=== PATIENT | female | born 1990 | race Caucasian/White ===

== ENCOUNTER 2020-06-25 06:00 | Inpatient (IN) ==
[2020-06-25] MEDS ORDERED: Famotidine 20 MG/2 ML VIAL IVP PRN (06:19)
[2020-06-25] MEDS ORDERED: Ondansetron 4 MG/2 ML VIAL IVP PRN (06:19)
[2020-06-25] MEDS ORDERED: *HR* Nalbuphine 10 MG/ML AMPUL IV PRN (06:19)
[2020-06-25] MEDS ORDERED: Lidocaine 1% 20 ML MDV ID PRN (06:19)
[2020-06-25] MEDS ORDERED: Naloxone 0.4 MG/ML INJ IVP PRN (06:19)
[2020-06-25] MEDS ORDERED: Metoclopramide 10 MG/2 ML VIAL IVP PRN (06:19)
[2020-06-25] MEDS ORDERED: Azithromycin 500 MG in 0.9 % Sodium Chloride 250 ML IVPB ONE (06:19)
[2020-06-25] MEDS ORDERED: D5% in 0.45% NACL 1,000 ML IVC SCH (06:30)
[2020-06-25 07:16] LABS: Basophils # 0.1 K/mcL (0.0-0.2); Basophils % 0.3 %; Eosinophils # 0.2 K/mcL (0.0-0.6); Eosinophils % 1.3 %; Hematocrit 37.8 % (35.3-44.9); Hemoglobin 12.7 g/dL (11.5-15.4); Immature Granulocytes % 0.7 % (0-4); Lymphocytes # 2.5 K/mcL (0.6-4.6); Lymphocytes % 17.1 %; Mean Corpuscular HGB Conc 33.6 g/dL (31.6-35.5); Mean Corpuscular Hemoglobin 31.2 pg (28.0-33.3); Mean Corpuscular Volume 92.9 fL (83.0-100.0); Mean Platelet Volume 10.7 fL (9.4-12.4); Monocytes # 0.9 K/mcL (0.0-1.3); Monocytes % 5.8 %; Platelet Count 180 K/mcL (140-400); Red Blood Count 4.07 M/mcL (3.82-4.97); Red Cell Distribution Width 12.7 % (11.5-14.5); Segmented Neutrophils % 74.8 %; White Blood Count 14.7 K/mcL (4.3-11.1)
[2020-06-25] MEDS ORDERED: EPHEDrine 50 MG/ML VIAL IVP PRN (08:12)
[2020-06-25] MEDS ORDERED: Epidural Premix (fent/bupiv) 110 ML EP SCH (08:15)
[2020-06-25 08:28] LABS: Amphetamine Screen,Urine Negative ng/mL (Cutoff=1000); Barbiturate Screen,Urine Negative ng/mL (Cutoff=200); Benzodiazepines Screen,Urine Negative ng/mL (Cutoff=200); Cannabinoid Screen,Urine Negative ng/mL (Cutoff = 50); Cocaine Screen,Urine Negative ng/mL (Cutoff= 300); Opiate Screen,Urine Negative ng/mL (Cutoff=300); Phencyclidine Screen,Urine Negative ng/mL (Cutoff=25)
[2020-06-25 08:32] LABS: Adenovirus Not Detected (Not Detect); Bordetella Pertussis Not Detected (Not Detect); Chlamydophila pneumoniae Not Detected (Not Detect); Coronavirus 229E Not Detected (Not Detect); Coronavirus HKU1 Not Detected (Not Detect); Coronavirus NL63 Not Detected (Not Detect); Coronavirus OC43 Not Detected (Not Detect); Human Metapneumovirus Not Detected (Not Detect); Human Rhinovirus/Enterovirus Not Detected (Not Detect); Influenza A Subtype 2009 H1 Not Detected (Not Detect); Influenza B Not Detected (Not Detect); Mycoplasma pneumoniae Not Detected (Not Detect); Parainfluenza Virus 1 Not Detected (Not Detect); Parainfluenza Virus 2 Not Detected (Not Detect); Parainfluenza Virus 3 Not Detected (Not Detect); Parainfluenza Virus 4 Not Detected (Not Detect); Respiratory Syncytial Virus Not Detected (Not Detect); SARS-CoV-2 Not Detected (Not Detect)
[2020-06-25] MEDS ORDERED: Oxytocin 20 units/ LR 1000 mL 20 UNIT/1,000 ML BAG IVC SCH (20:15)
[2020-06-25] MEDS ORDERED: Ringers Solution, Lactated 1,000 ML ONE (20:22)
[2020-06-25] MEDS ORDERED: *HR* FentaNYL (PF) 100 MCG/2 ML VIAL ONE (20:39)
[2020-06-25] MEDS ORDERED: Ropivacaine/PF 0.2% 20 ML VIAL ONE (20:39)
[2020-06-25] MEDS ORDERED: Ringers Solution, Lactated 1,000 ML IVC SCH (20:45)
[2020-06-26] MEDS ORDERED: Acetaminophen 325 MG TABLET PO ONE (05:33)
[2020-06-26] MEDS ORDERED: CeFAZolin 2,000 MG/50 ML BAG IVPB ONE (06:31)
[2020-06-26] MEDS ORDERED: Lidocaine/EPI 1:200k 2% PF 20 ML VIAL ONE (06:40)
[2020-06-26] MEDS ORDERED: *HR* Phenylephrine 10 MG/ML VIAL ONE (06:40)
[2020-06-26] MEDS ORDERED: *HR* Oxytocin 10 UNIT/ML VIAL IM ONE ×2 (06:55→07:38)
[2020-06-26] MEDS ORDERED: Ondansetron 4 MG/2 ML VIAL ONE ×2 (07:16→07:38)
[2020-06-26] MEDS ORDERED: *HR* Morphine Sulfate/PF 10 MG/10 ML AMPUL ONE (07:20)
[2020-06-26] MEDS ORDERED: *HR* FentaNYL (PF) 100 MCG/2 ML VIAL ONE (07:20)
[2020-06-26] MEDS ORDERED: Ketorolac 30 MG/ML VIAL ONE (07:38)
[2020-06-26] MEDS ORDERED: Rho Immune Globulin 1,500 UNIT SYRINGE IM ONE (07:56)
[2020-06-26] MEDS ORDERED: Ondansetron 4 MG/2 ML VIAL IVP PRN (07:56)
[2020-06-26] MEDS ORDERED: *HR* OxyCODONE Immed Rel 5 MG TABLET PO PRN (07:56)
[2020-06-26] MEDS ORDERED: Simethicone 80 MG TAB.CHEW PO PRN (07:56)
[2020-06-26] MEDS ORDERED: Metoclopramide 10 MG/2 ML VIAL IVP PRN (07:56)
[2020-06-26] MEDS ORDERED: Oxytocin 20 units/ LR 1000 mL 20 UNIT/1,000 ML BAG IVC SCH (08:00)
[2020-06-26] MEDS: cephALEXin 500 MG CAPSULE PO SCH ×3 (10:23→19:51)
[2020-06-26] MEDS: metroNIDAZOLE 500 MG TABLET PO SCH ×3 (10:23→19:51)
[2020-06-26] MEDS: Prenatal Vit/FA 1 EACH TABLET PO SCH (10:23)
[2020-06-26] MEDS: Ibuprofen 600 MG TABLET PO SCH ×3 (13:15→19:48)
[2020-06-26] MEDS: Acetaminophen 325 MG TABLET PO SCH ×2 (13:15→19:06)
[2020-06-26] MEDS ORDERED: Lanolin 7 G OINT...G. TP PRN (16:09)
[2020-06-27] MEDS: Acetaminophen 325 MG TABLET PO SCH ×4 (00:48→21:44)
[2020-06-27] MEDS: Ibuprofen 600 MG TABLET PO SCH ×3 (04:51→21:44)
[2020-06-27 07:18] LABS: Basophils # 0.1 K/mcL (0.0-0.2); Basophils % 0.3 %; Eosinophils # 0.1 K/mcL (0.0-0.6); Eosinophils % 0.4 %; Hematocrit 28.5 % (35.3-44.9); Immature Granulocytes % 0.6 % (0-4); Lymphocytes # 2.8 K/mcL (0.6-4.6); Lymphocytes % 15.8 %; Mean Corpuscular HGB Conc 33.7 g/dL (31.6-35.5); Mean Corpuscular Hemoglobin 31.7 pg (28.0-33.3); Mean Corpuscular Volume 94.1 fL (83.0-100.0); Mean Platelet Volume 10.7 fL (9.4-12.4); Monocytes # 1.2 K/mcL (0.0-1.3); Monocytes % 6.7 %; Neutrophils # 13.6 K/mcL (1.6-8.9); Platelet Count 179 K/mcL (140-400); Red Blood Count 3.03 M/mcL (3.82-4.97); Red Cell Distribution Width 12.7 % (11.5-14.5); Segmented Neutrophils % 76.2 %; White Blood Count 17.9 K/mcL (4.3-11.1)
[2020-06-27 07:25] LABS: Hemoglobin 9.6 g/dL (11.5-15.4)
[2020-06-27] MEDS: cephALEXin 500 MG CAPSULE PO SCH ×3 (08:42→21:45)
[2020-06-27] MEDS: metroNIDAZOLE 500 MG TABLET PO SCH ×3 (08:42→21:45)
[2020-06-27] MEDS: Prenatal Vit/FA 1 EACH TABLET PO SCH (08:42)
[2020-06-28 07:30] VITALS: BP 113/77
[2020-06-28] MEDS: Prenatal Vit/FA 1 EACH TABLET PO SCH (08:12)
[2020-06-28] MEDS: Ibuprofen 600 MG TABLET PO SCH ×2 (08:12→14:36)
[2020-06-28] MEDS: Acetaminophen 325 MG TABLET PO SCH ×2 (08:12→14:36)
[2020-06-28] MEDS ORDERED: cephALEXin 500 MG CAPSULE PO SCH (09:00)
[2020-06-28] MEDS ORDERED: metroNIDAZOLE 500 MG TABLET PO SCH (09:00)
== END 2020-06-28 14:51 | disposition home or self-care (01) | DRG 788 ==
LOC: 1NENULAB 06:06 → 1NENUOBS 06-26 10:19
PROVIDERS: ADMIT Obstetrics & Gynecology; ATTEND Obstetrics & Gynecology